=== PATIENT | male | born 2000 | race Caucasian/White ===

== ENCOUNTER 2023-03-18 09:04 | Emergency (ER) | payer SELFPAY ==
[~2023-03-18] VITALS: Ht 188 cm; Wt 108.0 kg
[2023-03-18 09:10] VITALS: BP 152/90; PULSE 84; RESP 20; TEMP 99.4; O2SAT 98
[2023-03-18] MEDS ORDERED: IBUP-2030 MT (10:49)
[2023-03-18] MEDS ORDERED: AMOX1TAB16 MT (10:49)
== END 2023-03-18 10:47 | disposition home or self-care (01) ==
LOC: ER 09:04
DX: J03.90 Acute tonsillitis, unspecified (principal)
CPT/HCPCS: 87070; 87077; 87430; 99283